=== PATIENT | female | born 1990 | race African-American/Black ===

== ENCOUNTER 2018-09-04 14:06 | Emergency (ER) | payer OTHER ==
[~2018-09-04] VITALS: Ht 175.3 cm; Wt 86.4 kg
[2018-09-04] MEDS ORDERED: COLA100C5 PO (16:45)
[2018-09-04] MEDS ORDERED: IRON27TA2 PO (16:46)
[2018-09-04] MEDS ORDERED: diphenhydrAMINE 25 MG CAP PO ONE (17:00)
[2018-09-04] MEDS ORDERED: dexameTHASONE 4 MG/ML 1ML VIAL (J1100) IM ONE (17:00)
[2018-09-04] MEDS ORDERED: PRED20TA PO (17:25)
[2018-09-04 17:34] VITALS: BP 126/97
== END 2018-09-04 17:42 | disposition home or self-care (01) ==
LOC: M ED 14:06
DX: T78.40XA Allergy, unspecified, initial encounter (principal); Y92.9 Unspecified place or not applicable; Y93.9 Activity, unspecified; I10 Essential (primary) hypertension; Z79.899 Other long term (current) drug therapy; Z88.2 Allergy status to sulfonamides
CPT/HCPCS: 96372; 99283; J1100

== ENCOUNTER 2019-01-29 18:45 | Emergency (ER) | payer OTHER ==
[~2019-01-29] VITALS: Ht 175.3 cm; Wt 89.1 kg
[~2019-01-29 18:45] MED LIST: COLA100C5 PO; IRON27TA2 PO; PRED20TA PO
[2019-01-29] MEDS ORDERED: ISOVUE-370 76% 100ML VIAL (Q9967) As Ordered ONE (21:54)
--- NOTE | 2019-01-29 22:44 | REPVR ---
EXAM: CT Angiography Chest With Contrast EXAM DATE/TIME: 01/29/2019 10:19 PM CLINICAL HISTORY: 28 years old, female; Shortness of breath; Chest pain; Additional info: Pleuritic chest pain/sob TECHNIQUE: Imaging protocol: Axial computed tomographic angiography images of the chest with intravenous contrast using CT angiography protocol. Coronal and sagittal reformatted images were created and reviewed. 3D rendering: MIP reconstructed images were created and reviewed. Radiation optimization: All CT scans at this facility use at least one of these dose optimization techniques: automated exposure control; mA and/or kV adjustment per patient size (includes targeted exams where dose is matched to clinical indication); or iterative reconstruction. Contrast material: ISOVUE 370;Contrast volume: 75 ml;Contrast route: IV; COMPARISON: No relevant prior studies available. FINDINGS: Pulmonary arteries: The main pulmonary artery measures 23 mm. No central pulmonary embolism is identified. Aorta: The ascending thoracic aorta measures 27 mm. Lungs: There is some motion artifact in the lungs. Pleural space: Unremarkable. No pneumothorax. No pleural effusion. Heart: Unremarkable. No cardiomegaly. No pericardial effusion. Mediastinum: There is soft tissue conforming to the anterior mediastinum consistent with residual thymic tissue. Lymph nodes: Unremarkable. No enlarged lymph nodes. Bones/joints: Unremarkable. No acute fracture. Soft tissues: Unremarkable. IMPRESSION: Negative CTA chest. No central pulmonary embolism is identified. Electronically signed by: Miguel Angel Jaramillo On 01/29/2019 22:44:03 PM
[2019-01-29 23:00] VITALS: BP 119/83
--- NOTE | 2019-01-30 06:22 | ECGEPIP ---
[facility] - ED Test Date: 2019-01-29 Pat Name: WAI LUCIANO Department: Room: - Gender: Female [employer] Operator: : [id number] Requested By: MIRNA Solis Order Number: [id number] Reading MD: Javier Betancourt Measurements Intervals [place] Rate: 68 P: -2 SD: 146 QRS: 32 QRSD: 81 T: 14 QT: 390 QTc: 415 Interpretive Statements SINUS RHYTHM BENIGN EARLY REPOLARIZATION NO PRIORS FOR COMPARISON Electronically Signed on 01-30-2019 6:22:05 EDT by Javier Betancourt
== END 2019-01-29 23:27 | disposition home or self-care (01) ==
LOC: M ED 18:45
DX: R06.02 Shortness of breath (principal); R07.1 Chest pain on breathing; F41.9 Anxiety disorder, unspecified; I10 Essential (primary) hypertension; E03.9 Hypothyroidism, unspecified; Z97.5 Presence of (intrauterine) contraceptive device; Z79.899 Other long term (current) drug therapy; Z88.2 Allergy status to sulfonamides
CPT/HCPCS: 71275; 80047; 93005; 93041; 99285; Q9967